=== PATIENT | male | born 1980 | race Caucasian/White ===

== ENCOUNTER 2023-04-23 12:03 | Emergency (ER) | payer OTHER ==
[2023-04-23 12:13] VITALS: BP 119/75; PULSE 108; RESP 18; TEMP 97.8; BMI 23.6
[2023-04-23] MEDS ORDERED: CYCLOBENZAPRINE HCL 10 MG TABLET (FP) PO ONE (12:53)
[2023-04-23] MEDS ORDERED: KETOROLAC TROMETHAMINE 30 MG/1 ML VIAL IM ONE (12:53)
[2023-04-23] MEDS ORDERED: DEXAMETHASONE SOD PHOSPHATE 10 MG/1 ML VIAL IM ONE (12:53)
[2023-04-23] MEDS ORDERED: DEXAMETHASONE SOD PHOSPHATE 10 MG/1 ML VIAL ONE (13:01)
[2023-04-23] MEDS ORDERED: KETOROLAC TROMETHAMINE 15 MG/ML VIAL ONE (13:01)
[2023-04-23] MEDS ORDERED: CYCLOBENZAPRINE HCL 10 MG TABLET (FP) ONE (13:01)
== END 2023-04-23 14:52 | disposition home or self-care (01) ==
LOC: JERFT 12:03
PROC: 3E0233Z Introduction of Anti-inflammatory into Muscle, Percutaneous Approach (ICD-10-PCS; principal; 2023-04-23)
PROC: 3E023GC Introduction of Other Therapeutic Substance into Muscle, Percutaneous Approach (ICD-10-PCS; 2023-04-23)
DX: M25.512 Pain in left shoulder (principal); M75.32 Calcific tendinitis of left shoulder
CPT/HCPCS: 73030-TC-LT-FY; 99284-25; J1100

== ENCOUNTER 2024-08-20 18:00 | Emergency (ER) | payer OTHER ==
[2024-08-20 18:40] VITALS: BP 111/62; PULSE 110; RESP 19; TEMP 99.2; BMI 23.4
[2024-08-20] MEDS ORDERED: ACETAMINOPHEN 500 MG TABLET (FP) ONE (19:26)
[2024-08-20] MEDS: ACETAMINOPHEN 500 MG TABLET (FP) PO ONE (20:10)
[2024-08-20 20:20] LABS: BASO % 0.1 % (0-2.0); HEMATOCRIT 41.1 % (35.4-49); HEMOGLOBIN 13.4 GM/dL (11.7-16.9); LYMPH % 5.8 % (8-40); MCH 30.5 pg (25.7-33.7); MCHC 32.7 g/dl (32.0-35.9); MEAN CELL VOLUME 93.4 fl (80-96); MEAN PLT VOLUME 7.4 fl (7.5-11.1); MONO % 17.3 % (3.8-10.2); NEUT % 76.8 % (42.8-82.8); PLATELET COUNT 182 10^3/uL (134-434); RDW 14.5 % (11.9-15.9); WHITE BLOOD COUNT 5.2 K/mm3 (4.0-10.0)
[2024-08-20 20:39] LABS: POTASSIUM 4.1 mmol/L (3.5-5.1)
[2024-08-20 20:43] LABS: ALBUMIN 3.9 g/dl (3.4-5.0); CALCIUM 9.2 mg/dL (8.5-10.1)
[2024-08-20 20:46] LABS: CREATININE 1.1 mg/dL (0.55-1.3)
[2024-08-20 20:48] LABS: BILIRUBIN,TOTAL 0.3 mg/dL (0.2-1)
[2024-08-20 20:50] LABS: INR 1.16 (0.83-1.09)
[2024-08-20 20:53] LABS: ACTIVATED PTT 34.8 SECONDS (25.2-36.5)
== END 2024-08-20 22:34 | disposition home or self-care (01) ==
LOC: JERFT 18:00
DX: J10.1 Influenza due to other identified influenza virus with other respiratory manifestations (principal); J02.9 Acute pharyngitis, unspecified; R51.9 Headache, unspecified; R50.9 Fever, unspecified; Z20.822 Contact with and (suspected) exposure to COVID-19
CPT/HCPCS: 0241U-QW; 36415; 71046-TC-FY; 80053; 84484; 85025; 85610; 85730; 93005; 93010; 99283-25

== ENCOUNTER 2025-02-08 15:17 | Emergency (ER) | payer OTHER ==
[2025-02-08 15:24] VITALS: TEMP 98.6; BMI 23.6
[2025-02-08] MEDS ORDERED: ACETAMINOPHEN 500 MG TABLET (FP) ONE (16:35)
[2025-02-08] MEDS ORDERED: IBUPROFEN 600 MG TABLET (FP) PO ONE (16:36)
[2025-02-08 17:01] LABS: ABSOLUTE IMMATURE GRANULOCYTES 0.02 x10^3/uL (0.0-0.031); BASOPHILS # 0.01 x10^3/uL (0.01-0.08); HEMATOCRIT 41.8 % (40.1-51.0); HEMOGLOBIN 13.9 g/dL (13.7-17.5); MCHC 33.3 g/dl (32.3-36.5); MEAN CELL VOLUME 86.5 fl (79.0-92.2); MEAN PLT VOLUME 8.8 fl (9.4-12.4); MONOCYTE # 0.38 x10^3/uL (0.30-0.82); MONOCYTE % 6.1 % (5.3-12.2); PLATELET COUNT 221 x10^3/uL (163-337); RDW 13.2 % (12.1-15.9)
[2025-02-08] MEDS: IBUPROFEN 400 MG TABLET (FP) PO ONE (17:02)
[2025-02-08] MEDS: ACETAMINOPHEN 500 MG TABLET (FP) PO ONE (17:02)
[2025-02-08 17:18] LABS: POTASSIUM 4.4 mmol/L (3.5-5.1)
[2025-02-08 17:20] LABS: CALCIUM 9.8 mg/dL (8.5-10.1)
[2025-02-08 17:21] LABS: ALBUMIN 4.3 g/dl (3.4-5.0)
[2025-02-08 17:22] LABS: INR 1.07 (0.83-1.09); PROTHROMBIN TIME (PATIENT) 11.8 SEC (9.7-13.0)
[2025-02-08 17:24] LABS: CREATININE 0.9 mg/dL (0.55-1.3)
[2025-02-08 17:25] LABS: ACTIVATED PTT 31.8 SECONDS (25.2-36.5)
[2025-02-08 17:26] LABS: BILIRUBIN,TOTAL 0.2 mg/dL (0.2-1); TOT PROT 8.6 g/dl (6.4-8.2)
[2025-02-08] MEDS ORDERED: MAG HYDROX/AL HYDROX/SIMETH 30 ML UNIT-DOSE CUP ONE (17:48)
[2025-02-08] MEDS: MAG HYDROX/AL HYDROX/SIMETH 30 ML UNIT-DOSE CUP PO ONE (17:49)
[2025-02-08] MEDS: SUCRALFATE 1 GM/10 ML UNIT DOSE CUPS PO ONE (17:49)
[2025-02-08 20:59] VITALS: BP 102/66; PULSE 56; RESP 19
== END 2025-02-08 21:22 | disposition home or self-care (01) ==
LOC: JER 15:17
DX: R07.2 Precordial pain (principal); M54.2 Cervicalgia; G89.29 Other chronic pain
CPT/HCPCS: 36415; 71046-TC-FY; 71275-TC; 74174-TC; 80053; 84484; 85025; 85610; 85651; 85730; 86140; 86618; 93005; 93010; 99285-25; Q9967